=== PATIENT | female | born 1940 | race Caucasian/White ===

== ENCOUNTER 2020-04-21 19:55 | Observation (INO) ==
[2020-04-21 20:54] LABS: ABS Eosinophils 0.2 10^3/ul (0-0.6); ABS Lymphocytes 1.2 10^3/ul (1.0-4.8); ABS Monocytes 0.4 10^3/ul (0-0.8); Eosinophil % 5.2 %; Hematocrit 42 % (35-47); Hemoglobin 14.4 g/dL (12.0-16.0); Lymphocyte % 28.3 %; Mean Corpuscular HGB Conc 34 g/dL (31-36); Mean Corpuscular Hemoglobin 30 pg (27-31); Mean Corpuscular Volume 88 fL (80-97); Mean Platelet Volume 7.5 fL (7.4-10.4); Nucleated Red Blood Cells % 0.1; Platelet Count 259 10^3/uL (150-450); Red Blood Count 4.78 10^6 /uL (3.70-4.87); Red Cell Distribution Width 15 % (10-15); White Blood Count 4.1 10^3/uL (3.5-10.8)
[2020-04-21 20:58] LABS: INR 0.97 (0.82-1.09)
[2020-04-21 21:11] LABS: Albumin 4.4 g/dL (3.2-5.2); Albumin/Globulin Ratio 1.8 (1-3); BUN/Creatinine Ratio 17.1 (8-20); Calcium 9.4 mg/dL (8.6-10.3); EGFR Non-African American 66.9 (>60); Globulin 2.5 g/dL (2-4); Total Bilirubin 0.5 mg/dL (0.2-1.0); Total Protein 6.9 g/dL (6.4-8.9)
[2020-04-21 21:56] LABS: HDL Cholesterol 80.8 mg/dL
[2020-04-21 22:13] LABS: Urine Appearance Clear; Urine Bilirubin Negative (Negative); Urine Blood Negative (Negative); Urine Color Straw; Urine Glucose Negative (Negative); Urine Ketones Negative (Negative); Urine Nitrite Negative (Negative); Urine Protein Negative (Negative); Urine Specific Gravity 1.005 (1.010-1.030); Urine Urobilinogen Negative (Negative)
[2020-04-21] MEDS: Enoxaparin 40 MG/0.4 ML SYR(*) SUBCUT SCH (23:18)
[2020-04-22] MEDS ORDERED: Iohexol 350 (CONTRAST) 500 ML MDV IV SCH (18:31)
[2020-04-22] MEDS: Enoxaparin 40 MG/0.4 ML SYR(*) SUBCUT SCH ×2 (19:56→20:03)
[2020-04-22 22:19] VITALS: BP 163/64
== END 2020-04-22 22:35 | disposition short-term general hospital (02) ==
LOC: MEDTELE 19:55 → ED 19:55 → MEDTELE 22:43
PROVIDERS: ADMIT Internal Medicine; ATTEND Internal Medicine